=== PATIENT | female | born 1960 | race Caucasian/White ===

== ENCOUNTER 2022-07-09 05:20 | Emergency (ER) | payer BC ==
[~2022-07-09] VITALS: Ht 172.7 cm; Wt 90.9 kg
[2022-07-09] MEDS ORDERED: ketorolac tromethamine 15mg/ml inj. IM ONE (06:35)
[2022-07-09 06:40] VITALS: BP 139/71
--- NOTE | 2022-07-09 06:51 | NUR ---
rn confirmed with dr thomas no need for urine to be collected.
== END 2022-07-09 07:02 | disposition home or self-care (01) ==
LOC: ER 05:21
DX: K64.5 Perianal venous thrombosis (principal); Z88.8 Allergy status to other drugs, medicaments and biological substances
CPT/HCPCS: 96372; 99283; J1885